=== PATIENT | female | born 1965 | race Caucasian/White ===

== ENCOUNTER 2021-08-15 10:14 | Inpatient (IN) ==
[2021-08-15 13:54] LABS: ABS Lymphocytes 0.8 10^3/ul (1.0-4.8); ABS Monocytes 0.5 10^3/ul (0-0.8); ABS Neutrophils 4.8 10^3/ul (1.5-7.7); Eosinophil % 0.2 %; Hematocrit 38 % (35-47); Hemoglobin 13.2 g/dL (12.0-16.0); Lymphocyte % 13.7 %; Mean Corpuscular HGB Conc 35 g/dL (31-36); Mean Corpuscular Hemoglobin 33 pg (27-31); Mean Corpuscular Volume 94 fL (80-97); Mean Platelet Volume 7.4 fL (7.4-10.4); Nucleated Red Blood Cells % 0.1; Platelet Count 200 10^3/uL (150-450); Red Blood Count 4.05 10^6 /uL (3.70-4.87); Red Cell Distribution Width 12 % (10-15); White Blood Count 6.2 10^3/uL (3.5-10.8)
[2021-08-15 14:39] LABS: ALT 19 U/L (7-52); Albumin 4.2 g/dL (3.2-5.2); Albumin/Globulin Ratio 1.7 (1-3); Alkaline Phosphatase 62 U/L (35-149); Blood Urea Nitrogen 5 mg/dL (6-24); CO2 Carbon Dioxide 27 mmol/L (22-32); Chloride 94 mmol/L (101-111); Globulin 2.5 g/dL (2-4); Glucose 96 mg/dL (70-100); Sodium 129 mmol/L (135-145); Total Protein 6.7 g/dL (6.4-8.9); eGFR CKD-EPI 118.3 (>60)
[2021-08-15 14:44] LABS: Anion Gap 8 mmol/L (2-11)
[2021-08-15 16:24] LABS: Potassium Redraw 4.1 mmol/L (3.5-5.0)
[2021-08-15] MEDS ORDERED: Senna TAB 8.6 mg TAB PO PRN (18:04)
[2021-08-15] MEDS ORDERED: Magnesium Hydroxide LIQ 30 ML UDC PO PRN (18:04)
[2021-08-15] MEDS ORDERED: Polyethylene Glycol 3350 17 GM PACKET PO PRN (18:04)
[2021-08-15] MEDS: Morphine 2 MG/ML SYRINGE IV PRN (18:36)
[2021-08-15] MEDS: CARBAMAZEPINE 200 MG PO SCH (21:38)
[2021-08-15] MEDS ORDERED: Heparin 5000 UNITS/ML 1 mL VIAL SUBCUT SCH (22:00)
[2021-08-16] MEDS: Morphine 2 MG/ML SYRINGE IV PRN ×3 (01:02→14:13)
[2021-08-16 05:53] LABS: Hematocrit 37 % (35-47); Hemoglobin 12.5 g/dL (12.0-16.0); Mean Corpuscular HGB Conc 34 g/dL (31-36); Mean Corpuscular Hemoglobin 32 pg (27-31); Mean Corpuscular Volume 95 fL (80-97); Mean Platelet Volume 7.9 fL (7.4-10.4); Platelet Count 172 10^3/uL (150-450); Red Blood Count 3.89 10^6 /uL (3.70-4.87); Red Cell Distribution Width 12 % (10-15); White Blood Count 3.7 10^3/uL (3.5-10.8)
[2021-08-16 06:04] LABS: INR 1.07 (0.86-1.15)
[2021-08-16 06:11] LABS: Calcium 8.6 mg/dL (8.6-10.3); Potassium 4.3 mmol/L (3.5-5.0); eGFR CKD-EPI 108.2 (>60)
[2021-08-16] MEDS ORDERED: carBAMazepine ER 100mg TAB PO SCH (09:00)
[2021-08-16] MEDS: CARBAMAZEPINE 200 MG PO SCH ×2 (09:04→21:41)
[2021-08-16] MEDS ORDERED: NS 0.9% 1000 ml BAG 1,000 ML IV SCH (10:15)
[2021-08-16] MEDS ORDERED: Lactated Ringers 1000 ml BAG 1,000 ML IV SCH (11:00)
[2021-08-16] MEDS ORDERED: Bupivacaine 0.5% 50 ML MDV VIAL ONE (15:08)
[2021-08-16] MEDS ORDERED: Midazolam 2 mg/2 ml VIAL 1 mg/ml 2 ml VIAL (2 mg) ONE ×2 (15:20→17:04)
[2021-08-16] MEDS ORDERED: Ketamine HCL 50 mg/ml 10 ml VIAL (500 MG) ONE (15:20)
[2021-08-16] MEDS ORDERED: Propofol 10 MG/ML 20 ML BTL ONE ×5 (15:20→18:32)
[2021-08-16] MEDS ORDERED: Lidocaine 2% PF 5 ML VIAL ONE (15:20)
[2021-08-16] MEDS ORDERED: ceFAZolin 2 GM PREMIX 2 GM/50 ML BAG ONE (15:55)
[2021-08-16] MEDS ORDERED: Ondansetron 4 mg VIAL 2 MG/ML 2 ml VIAL IV PRN (17:40)
[2021-08-16] MEDS ORDERED: HYDROmorphone 1 MG/1 ML SYRINGE IV PRN (17:40)
[2021-08-16] MEDS ORDERED: Naloxone 0.4 mg VIAL 0.4 mg/ml 1 ml VIAL IV PRN (17:40)
[2021-08-16] MEDS ORDERED: Acetaminophen IV 1 GM/100ML 100 ML IV PRN (17:40)
[2021-08-16] MEDS ORDERED: fentaNYL 100 mcg/2 ml 50 MCG/ML VIAL IV PRN (17:40)
[2021-08-16] MEDS ORDERED: DiMENhydriNATE IV 50 mg/ml 1 ml VIAL IV PUSH PRN (17:40)
[2021-08-16] MEDS ORDERED: Lidocaine 1% w EPI 1:200,000 SDV 30 ML VIAL ONE (18:18)
[2021-08-16] MEDS ORDERED: Bupivacaine 0.5% SDV PF 30ML VIAL ONE (18:26)
[2021-08-16] MEDS ORDERED: Ondansetron 4 mg VIAL 2 MG/ML 2 ml VIAL ONE (18:39)
[2021-08-17] MEDS: Morphine 2 MG/ML SYRINGE IV PRN (00:17)
[2021-08-17] MEDS: ceFAZolin 2 GM PREMIX 2 GM/50 ML BAG IVPB SCH ×3 (00:20→17:35)
[2021-08-17 07:03] LABS: ABS Lymphocytes 0.8 10^3/ul (1.0-4.8); ABS Monocytes 0.6 10^3/ul (0-0.8); ABS Neutrophils 3.2 10^3/ul (1.5-7.7); Eosinophil % 0.2 %; Hematocrit 32 % (35-47); Hemoglobin 11.2 g/dL (12.0-16.0); Lymphocyte % 16.5 %; Mean Corpuscular HGB Conc 35 g/dL (31-36); Mean Corpuscular Hemoglobin 33 pg (27-31); Mean Corpuscular Volume 95 fL (80-97); Mean Platelet Volume 7.9 fL (7.4-10.4); Platelet Count 153 10^3/uL (150-450); Red Blood Count 3.39 10^6 /uL (3.70-4.87); Red Cell Distribution Width 12 % (10-15); White Blood Count 4.7 10^3/uL (3.5-10.8)
[2021-08-17 07:38] LABS: Calcium 8.1 mg/dL (8.6-10.3); Potassium 3.7 mmol/L (3.5-5.0); eGFR CKD-EPI 112.4 (>60)
[2021-08-17] MEDS: CARBAMAZEPINE 200 MG PO SCH ×2 (09:03→20:04)
[2021-08-17] MEDS: Enoxaparin 40 MG/0.4 ML SYR SUBCUT SCH (09:03)
[2021-08-18] MEDS: CARBAMAZEPINE 200 MG PO SCH ×2 (08:07→22:28)
[2021-08-18] MEDS: Enoxaparin 40 MG/0.4 ML SYR SUBCUT SCH (08:07)
[2021-08-18 16:13] LABS: ABS Lymphocytes 0.9 10^3/ul (1.0-4.8); ABS Monocytes 0.8 10^3/ul (0-0.8); ABS Neutrophils 3.8 10^3/ul (1.5-7.7); Eosinophil % 0.3 %; Hematocrit 30 % (35-47); Hemoglobin 10.7 g/dL (12.0-16.0); Lymphocyte % 15.9 %; Mean Corpuscular HGB Conc 36 g/dL (31-36); Mean Corpuscular Hemoglobin 34 pg (27-31); Mean Corpuscular Volume 94 fL (80-97); Mean Platelet Volume 7.5 fL (7.4-10.4); Platelet Count 193 10^3/uL (150-450); Red Blood Count 3.15 10^6 /uL (3.70-4.87); Red Cell Distribution Width 12 % (10-15); White Blood Count 5.5 10^3/uL (3.5-10.8)
[2021-08-18 16:25] LABS: Urine Appearance Clear; Urine Bilirubin Negative (Negative); Urine Blood 1+ (Negative); Urine Color Yellow; Urine Glucose 1+(50 mg/dL) (Negative); Urine Ketones Negative (Negative); Urine Nitrite Negative (Negative); Urine Protein Negative (Negative); Urine Specific Gravity 1.011 (1.002-1.030); Urine Urobilinogen Negative (Negative)
[2021-08-18 16:30] LABS: Urine Bacteria Absent (Absent); Urine Red Blood Cell Trace(0-2/hpf) (Absent); Urine Squamous Epithelial Cell Present (Absent); Urine White Blood Cell Trace(0-5/hpf) (Absent)
[2021-08-18 17:02] LABS: Calcium 7.8 mg/dL (8.6-10.3); Magnesium 1.8 mg/dL (1.9-2.7); Potassium 3.8 mmol/L (3.5-5.0); eGFR CKD-EPI 115.4 (>60)
[2021-08-18] MEDS ORDERED: Magnesium Sulfate 2 gm BAG 2 GM/50 ML BAG IVPB ONE (21:54)
[2021-08-19 08:08] LABS: Calcium 7.9 mg/dL (8.6-10.3); Potassium 3.9 mmol/L (3.5-5.0); eGFR CKD-EPI 114.2 (>60)
[2021-08-19] MEDS: Enoxaparin 40 MG/0.4 ML SYR SUBCUT SCH (08:59)
[2021-08-19] MEDS: CARBAMAZEPINE 200 MG PO SCH ×2 (09:00→21:49)
[2021-08-20 05:27] LABS: ABS Lymphocytes 0.6 10^3/ul (1.0-4.8); ABS Monocytes 0.5 10^3/ul (0-0.8); Hematocrit 27 % (35-47); Hemoglobin 9.4 g/dL (12.0-16.0); Lymphocyte % 20.7 %; Mean Corpuscular HGB Conc 35 g/dL (31-36); Mean Corpuscular Hemoglobin 33 pg (27-31); Mean Corpuscular Volume 94 fL (80-97); Mean Platelet Volume 7.3 fL (7.4-10.4); Nucleated Red Blood Cells % 0.1; Platelet Count 202 10^3/uL (150-450); Red Blood Count 2.88 10^6 /uL (3.70-4.87); Red Cell Distribution Width 12 % (10-15); White Blood Count 3.1 10^3/uL (3.5-10.8)
[2021-08-20 06:01] LABS: Potassium 3.9 mmol/L (3.5-5.0); eGFR CKD-EPI 115.4 (>60)
[2021-08-20] MEDS: Enoxaparin 40 MG/0.4 ML SYR SUBCUT SCH (09:28)
[2021-08-20] MEDS: CARBAMAZEPINE 200 MG PO SCH ×2 (09:30→21:11)
[2021-08-21 06:16] LABS: ABS Lymphocytes 0.7 10^3/ul (1.0-4.8); ABS Monocytes 0.4 10^3/ul (0-0.8); ABS Neutrophils 1.6 10^3/ul (1.5-7.7); Eosinophil % 1.2 %; Hematocrit 28 % (35-47); Hemoglobin 9.8 g/dL (12.0-16.0); Lymphocyte % 25.3 %; Mean Corpuscular HGB Conc 35 g/dL (31-36); Mean Corpuscular Hemoglobin 33 pg (27-31); Mean Corpuscular Volume 94 fL (80-97); Mean Platelet Volume 7.4 fL (7.4-10.4); Nucleated Red Blood Cells % 0.2; Platelet Count 251 10^3/uL (150-450); Red Blood Count 2.96 10^6 /uL (3.70-4.87); Red Cell Distribution Width 12 % (10-15); White Blood Count 2.7 10^3/uL (3.5-10.8)
[2021-08-21 06:43] LABS: Calcium 8.2 mg/dL (8.6-10.3); Potassium 4.4 mmol/L (3.5-5.0); eGFR CKD-EPI 118.3 (>60)
[2021-08-21 08:16] LABS: Magnesium 2.3 mg/dL (1.9-2.7)
[2021-08-21] MEDS: CARBAMAZEPINE 200 MG PO SCH ×2 (09:28→20:39)
[2021-08-21] MEDS: Enoxaparin 40 MG/0.4 ML SYR SUBCUT SCH (09:31)
[2021-08-21] MEDS: Calcium/Vitamin D TAB 250/125 TAB PO SCH (14:03)
[2021-08-22] MEDS: Calcium/Vitamin D TAB 250/125 TAB PO SCH (10:22)
[2021-08-22] MEDS: CARBAMAZEPINE 200 MG PO SCH (10:23)
[2021-08-22] MEDS: Enoxaparin 40 MG/0.4 ML SYR SUBCUT SCH (10:24)
[2021-08-22 11:41] VITALS: BP 103/70
== END 2021-08-22 14:28 | DRG 308 ==
LOC: ED 10:14 → EDHOLD 15:38 → SUATTDRO 15:38 → SSU 17:37 → PMRU 08-22 16:54
PROVIDERS: ADMIT Internal Medicine; ATTEND Internal Medicine

== ENCOUNTER 2021-08-22 14:38 | Inpatient (IN) ==
[2021-08-22] MEDS ORDERED: Senna TAB 8.6 mg TAB PO PRN (19:11)
[2021-08-22] MEDS ORDERED: Polyethylene Glycol 3350 17 GM PACKET PO PRN (19:35)
[2021-08-22] MEDS ORDERED: Magnesium Hydroxide LIQ 30 ML UDC PO PRN (19:35)
[2021-08-23] MEDS: Enoxaparin 40 MG/0.4 ML SYR SUBCUT SCH (08:04)
[2021-08-23] MEDS: Calcium/Vitamin D TAB 250/125 TAB PO SCH (08:04)
[2021-08-23] MEDS: carBAMazepine ER 100mg TAB PO SCH (08:05)
[2021-08-24 07:09] LABS: ABS Lymphocytes 0.6 10^3/ul (1.0-4.8); ABS Monocytes 0.4 10^3/ul (0-0.8); ABS Neutrophils 2.6 10^3/ul (1.5-7.7); Eosinophil % 0.9 %; Hematocrit 29 % (35-47); Hemoglobin 10.1 g/dL (12.0-16.0); Lymphocyte % 16.1 %; Mean Corpuscular HGB Conc 35 g/dL (31-36); Mean Corpuscular Hemoglobin 33 pg (27-31); Mean Corpuscular Volume 95 fL (80-97); Mean Platelet Volume 6.9 fL (7.4-10.4); Platelet Count 313 10^3/uL (150-450); Red Blood Count 3.06 10^6 /uL (3.70-4.87); Red Cell Distribution Width 12 % (10-15); White Blood Count 3.7 10^3/uL (3.5-10.8)
[2021-08-24 07:23] LABS: Albumin 3.3 g/dL (3.2-5.2); Albumin/Globulin Ratio 1.4 (1-3); Calcium 8.6 mg/dL (8.6-10.3); Globulin 2.3 g/dL (2-4); Potassium 4.3 mmol/L (3.5-5.0); Total Bilirubin 0.6 mg/dL (0.2-1.0); Total Protein 5.6 g/dL (6.4-8.9); eGFR CKD-EPI 113.5 (>60)
[2021-08-24] MEDS: Calcium/Vitamin D TAB 250/125 TAB PO SCH (09:15)
[2021-08-24] MEDS: Enoxaparin 40 MG/0.4 ML SYR SUBCUT SCH (09:15)
[2021-08-24] MEDS: carBAMazepine ER 100mg TAB PO SCH (09:16)
[2021-08-25] MEDS: Enoxaparin 40 MG/0.4 ML SYR SUBCUT SCH (07:48)
[2021-08-25] MEDS: Calcium/Vitamin D TAB 250/125 TAB PO SCH (09:18)
[2021-08-25] MEDS: carBAMazepine ER 100mg TAB PO SCH (09:19)
[2021-08-25] MEDS: Senna TAB 8.6 mg TAB PO SCH (20:38)
[2021-08-26] MEDS: Calcium/Vitamin D TAB 250/125 TAB PO SCH (09:47)
[2021-08-26] MEDS: Enoxaparin 40 MG/0.4 ML SYR SUBCUT SCH (09:47)
[2021-08-26] MEDS: carBAMazepine ER 100mg TAB PO SCH (09:47)
[2021-08-26] MEDS: Senna TAB 8.6 mg TAB PO SCH (20:32)
[2021-08-27] MEDS: Calcium/Vitamin D TAB 250/125 TAB PO SCH (09:08)
[2021-08-27] MEDS: carBAMazepine ER 100mg TAB PO SCH (09:08)
[2021-08-27] MEDS: Enoxaparin 40 MG/0.4 ML SYR SUBCUT SCH (09:09)
[2021-08-27] MEDS: Senna TAB 8.6 mg TAB PO SCH (21:26)
[2021-08-28] MEDS: Enoxaparin 40 MG/0.4 ML SYR SUBCUT SCH (08:11)
[2021-08-28] MEDS: Calcium/Vitamin D TAB 250/125 TAB PO SCH (08:20)
[2021-08-28] MEDS: carBAMazepine ER 100mg TAB PO SCH (08:20)
[2021-08-28] MEDS: Senna TAB 8.6 mg TAB PO SCH (19:20)
[2021-08-29] MEDS: Calcium/Vitamin D TAB 250/125 TAB PO SCH (07:38)
[2021-08-29] MEDS: Enoxaparin 40 MG/0.4 ML SYR SUBCUT SCH (07:38)
[2021-08-29] MEDS: carBAMazepine ER 100mg TAB PO SCH (07:39)
[2021-08-29] MEDS: Senna TAB 8.6 mg TAB PO SCH (21:09)
[2021-08-30] MEDS: Calcium/Vitamin D TAB 250/125 TAB PO SCH (09:41)
[2021-08-30] MEDS: carBAMazepine ER 100mg TAB PO SCH (09:41)
[2021-08-30] MEDS: Enoxaparin 40 MG/0.4 ML SYR SUBCUT SCH (09:44)
[2021-08-30] MEDS: Senna TAB 8.6 mg TAB PO SCH (19:47)
[2021-08-31 06:46] LABS: ABS Lymphocytes 0.7 10^3/ul (1.0-4.8); ABS Monocytes 0.3 10^3/ul (0-0.8); ABS Neutrophils 2.2 10^3/ul (1.5-7.7); Eosinophil % 1.1 %; Hematocrit 33 % (35-47); Hemoglobin 10.9 g/dL (12.0-16.0); Lymphocyte % 22.3 %; Mean Corpuscular HGB Conc 33 g/dL (31-36); Mean Corpuscular Hemoglobin 32 pg (27-31); Mean Corpuscular Volume 95 fL (80-97); Mean Platelet Volume 6.8 fL (7.4-10.4); Nucleated Red Blood Cells % 0.1; Platelet Count 300 10^3/uL (150-450); Red Blood Count 3.43 10^6 /uL (3.70-4.87); Red Cell Distribution Width 13 % (10-15); White Blood Count 3.3 10^3/uL (3.5-10.8)
[2021-08-31 07:14] LABS: Albumin 3.6 g/dL (3.2-5.2); Albumin/Globulin Ratio 1.5 (1-3); Calcium 9.1 mg/dL (8.6-10.3); Globulin 2.4 g/dL (2-4); Potassium 4.2 mmol/L (3.5-5.0); Total Bilirubin 0.4 mg/dL (0.2-1.0); eGFR CKD-EPI 112.9 (>60)
[2021-08-31] MEDS: Calcium/Vitamin D TAB 250/125 TAB PO SCH (09:43)
[2021-08-31] MEDS: carBAMazepine ER 100mg TAB PO SCH (09:43)
[2021-08-31] MEDS: Senna TAB 8.6 mg TAB PO SCH (20:28)
[2021-09-01] MEDS: carBAMazepine ER 100mg TAB PO SCH (10:12)
[2021-09-01] MEDS: Calcium/Vitamin D TAB 250/125 TAB PO SCH (10:12)
[2021-09-01] MEDS: Senna TAB 8.6 mg TAB PO SCH (21:16)
[2021-09-02] MEDS: Calcium/Vitamin D TAB 250/125 TAB PO SCH (09:05)
[2021-09-02] MEDS: carBAMazepine ER 100mg TAB PO SCH (09:06)
[2021-09-02] MEDS: Senna TAB 8.6 mg TAB PO SCH (21:19)
[2021-09-03] MEDS: Calcium/Vitamin D TAB 250/125 TAB PO SCH (08:51)
[2021-09-03] MEDS: carBAMazepine ER 100mg TAB PO SCH (08:52)
[2021-09-03] MEDS: Senna TAB 8.6 mg TAB PO SCH (19:40)
[2021-09-04] MEDS: carBAMazepine ER 100mg TAB PO SCH (08:39)
[2021-09-04] MEDS: Calcium/Vitamin D TAB 250/125 TAB PO SCH (08:40)
[2021-09-04] MEDS: Senna TAB 8.6 mg TAB PO SCH (19:53)
[2021-09-05] MEDS: carBAMazepine ER 100mg TAB PO SCH (07:15)
[2021-09-05] MEDS: Calcium/Vitamin D TAB 250/125 TAB PO SCH (07:16)
[2021-09-05] MEDS: Senna TAB 8.6 mg TAB PO SCH (20:21)
[2021-09-06 05:31] VITALS: BP 129/83
[2021-09-06] MEDS: Calcium/Vitamin D TAB 250/125 TAB PO SCH (10:21)
[2021-09-06] MEDS: carBAMazepine ER 100mg TAB PO SCH (10:21)
== END 2021-09-06 13:23 | disposition home health service (06) | DRG 860 ==
LOC: PMRU 17:23
PROVIDERS: ADMIT Physical Medicine & Rehabilitation; ATTEND Physical Medicine & Rehabilitation